=== PATIENT | female | born 2000 | race Caucasian/White ===

== ENCOUNTER 2019-05-11 11:08 | Emergency (ER) | payer BC, MEDICAID, SELFPAY ==
--- NOTE | 2019-05-11 11:09 | ED.GENADUL_ITS ---
Discharge Plan Disposition Patient Disposition: HOME Condition: Good Discharge Details Chief Complaint: EyeProblem Clinical Impression: Conjunctivitis ED Provider: Bibiana Fenton Home Meds and New Rx's Prescriptions: Continued ibuprofen 200 MG tablet 1 tab PO PRN PRNRF: 0 No Action Mirena 20 mcg/24 hours (5 yrs) 52 mg Intrauterine Device 1 device INTRAUTERINE ONCE RF: 0 Discharge Instructions Instructions: Conjunctivitis (ED) Additional Instructions: Encourage hydration. Try not to rub your eye, this will make it more likely that he will contaminate the other eye or spread this to somebody else. You may use [id number] antihistamine drops to help with symptomatic management. Continue with warm compresses to help with discomfort. If you develop fever/chills, visual changes, increased pain or other new/worsening symptoms please seek care urgently once again. Otherwise, please follow-up with primary care in 1 week if not improved. Stand Alone Forms: Work Release Medical Decision Making Patient is a 19-year-old female presents today with chief complaint of left eye irritation. She reports that this began yesterday morning. No discharge during the day but does state that she is woken up with the eyes being in the morning. Denies any visual change. No pain in the eye but states that they are itchy. Reports resolution of her symptoms after applying a warm compress. Is noted the eye to be injected. Denies any fevers or chills. No headache. No recent travel. 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 Eyes slightly injected, no discharge. Extra movements are intact. Pupils equal round and reactive. She appears nontoxic. No periorbital abnormalities. Advised that her exam is most consistent with viral conjunctivitis. We discussed how this is spread and what to avoid. She was given return precautions. Encourage hydration. Advised she may continue with the warm compresses as well as antihistamine drops to help with symptomatic management. All her questions and concerns were addressed and she is in agreement with this plan peer [facility] General Mode of arrival: ambulatory . Date/Time Provider Initiated Documentation: 05/11/19 11:09 . Limitations to Documentation: no limitations . Information obtained by: patient and RN notes reviewed . History of Present Illness 19 year old F presents to the emergency department with the chief complaint of Left eye injection and irritation, described as mild (Reports that is itchy, denies any pain), and is localized to the eyes. Patient reports no radiation. Patient started experiencing this day(s) (2) and it has been constant. No relieving factors improve symptom(s), No exacerbating factors reported . Patient notes no other symptoms.; denies fever/chills, headaches, loss of appetite, nausea/vomiting and rash. Patient did receive the following treatments prior to arrival, none Related Data Home Medications Medication Instructions Recorded Confirmed ibuprofen 1 tab PO PRN PRN 10/21/14 05/11/19 levonorgestrel [Mirena] 1 device INTRAUTERINE ONCE 05/11/19 05/11/19 Allergies Allergy/AdvReac Type Severity Reaction Status Date / Time Penicillins Allergy Unknown Unverified 05/11/19 11:13 Review of Systems Constitutional Constitutional: Reports as per HPI, Denies chills, Denies fatigue, Denies fever(s) and Denies headache(s) Eyes Eyes: Reports as per HPI ENT Ears, Nose, Mouth, and Throat: Denies headache(s) Cardiovascular Cardiovascular: Reports as per HPI, Denies chest pain and Denies lightheadedness Respiratory Respiratory: Denies cough Integumentary/Breasts Skin/Breast: Reports as per HPI, Denies rash, Denies skin pain and Denies skin swelling Neurologic Neurologic: Denies headache(s) and Denies radicular pain Endocrine Endocrine: Denies fatigue COUNT INCLUDES THE [facility] Medical History Contraception, device intrauterine 2014 Depo 11/2015 Mirena IUD. Family History Father Diabetes Type 2 Grandmother Personal history of malignant neoplasm MGM: Breast ca. Social History Smoking/Tobacco Use Status: Current every day Tobacco Type: cigarettes Alcohol Intake: current Alcohol Intake frequency: a few times a month Alcohol type: wine Drug use: Occasionally Substance use type: marijuana Do you feel safe at home: Yes Do you feel safe in your relationship?: Yes Exam Const General: cooperative, healthy appearing, comfortable, no acute distress, well developed and well groomed Nutritional Appearance: average body habitus and well nourished Orientation: alert, awake and oriented x3 HENMT Head: normal to inspection, normocephalic and atraumatic Ears: hearing grossly normal bilaterally and external ears normal General nose exam: external nose normal and nares normal Face and sinus: normal facial exam and face symmetric Mouth: oral mucosae normal, lip normal and moist mucous membranes Eyes Visual Rivera: normal visual rivera by confrontation Alignment and Position: alignment normal and position normal Periorbital: periorbital findings normal Eyelids: eyelids normal Conjunctivae: conjunctival abnormality left conjunctival injection diffuse; without discharge Cornea: corneas normal Pupils: PERRL, normal by confrontation and accommodation normal EOM: EOM intact bilaterally Resp Effort & Inspection: normal respiratory effort, able to speak in complete sent ences and no respiratory distress Skin General skin exam: no rashes or lesions noted Neuro General: alert, awake and oriented x3 Cranial Nerves: CN's II-XI intact bilaterally Cognition: normal cognition Speech: speech normal Gait: normal gait Psych Appearance: grossly normal and well kempt Mental Status: mental status grossly normal Speech and Movement: speech and movement normal
[2019-05-11 11:10] VITALS: BP 143/83; PULSE 80; RESP 16; TEMP 36.5; O2SAT 99
== END 2019-05-11 11:37 | disposition home or self-care (01) ==
LOC: ER 11:37
PROVIDERS: Emergency Provider Physician Assistant
DX: H10.32 Unspecified acute conjunctivitis, left eye (principal)
CPT/HCPCS: 99282

== ENCOUNTER 2019-10-06 09:04 | Outpatient (CLI) | payer MEDICAID, SELFPAY ==
[2019-10-07 16:49] LABS: COVID-19 RT-PCR Result Negative (Negative)
== END 2019-10-06 09:24 ==
PROVIDERS: Visit Provider Physician Assistant Medical
DX: J02.9 Acute pharyngitis, unspecified (principal)
CPT/HCPCS: U0003

== ENCOUNTER 2025-01-20 21:23 | Outpatient (REF) | payer OTHER, SELFPAY ==
[2025-01-20 20:22] LABS: Abs Immature Grans 0.03 10^3/uL (0.0-0.06); HCT 51.7 % (36.0-46.0); HGB 17.4 g/dL (11.2-15.7); Immature Grans % 0.2 %; MCH 32.8 pg (27.0-33.0); MCHC 33.7 % (32.0-36.0); MCV 98 fL (80-95); MPV 11.3 fL (8.0-11.0); Platelet Count 204 10^3/uL (130-400); RBC 5.30 10^6/uL (3.93-5.22); RDW 12.3 % (11.7-14.6); RDW-SD 44.5 fL; WBC 13.31 10^3/uL (4.4-10.8)
[2025-01-20 20:45] LABS: WBC 0-2 HPF (0-5)
[2025-01-20 21:13] LABS: ALT 19 U/L (14-59); AST 22 U/L (15-37); Albumin 4.5 g/dL (3.4-5.0); Alkaline Phosphatase 56 U/L (46-116); Anion Gap 12.3 mmol/L (3-11); BUN 8 mg/dL (7-18); Bilirubin, Total 0.6 mg/dL (0.2-1.0); CO2 24.7 mmol/L (21.0-32.0); Calcium 9.4 mg/dL (8.5-10.1); Chloride 103 mmol/L (98-107); Glucose 72 mg/dL (74-106); Potassium 4.3 mmol/L (3.5-5.1); Sodium 140 mmol/L (136-145); Total Protein 7.5 g/dL (6.4-8.2)
[2025-01-22 10:49] LABS: Lyme Ab w Rflx to Lyme Confirm Negative (Negative)
[2025-01-24 21:17] LABS: B. miyamotoi PCR Negative (Negative); Babesia divergens/MO-1 Negative (Negative); Ehrlichia muris eauclairensis Negative (Negative)
== END 2025-01-20 21:24 | disposition home or self-care (01) ==
LOC: LBN 21:23
PROVIDERS: Visit Provider Physician Assistant Medical
DX: R11.2 Nausea with vomiting, unspecified (principal); R19.7 Diarrhea, unspecified
CPT/HCPCS: 80053; 87798; 81015; 85025; 86618; 87086

== ENCOUNTER 2025-01-21 10:06 | Outpatient (REF) | payer OTHER, SELFPAY ==
[2025-01-21 11:18] LABS: EPI 027-NAP1-B1 PRESUMPTIVE NEGATIVE
[2025-01-21 22:49] LABS: Campylobacter PCR Negative (Negative); Shiga Toxin PCR Negative (Negative); Shigella/Enteroinvasive Ecoli Negative (Negative)
== END 2025-01-21 10:07 | disposition home or self-care (01) ==
LOC: LBN 10:06
PROVIDERS: Visit Provider Physician Assistant Medical
DX: R11.2 Nausea with vomiting, unspecified (principal); R19.7 Diarrhea, unspecified
CPT/HCPCS: 87015; 87269; 87272; 87505